=== PATIENT | female | born 1990 | race African-American/Black ===

== ENCOUNTER 2024-11-19 21:47 | Emergency (ER) | payer BC, MEDICAID ==
[~2024-11-19] VITALS: Ht 165.1 cm; Wt 63.0 kg
[2024-11-19 21:51] VITALS: TEMP 36.8; O2SAT 100
[2024-11-19] MEDS ORDERED: TETANUS, DIPHTHERIA, PERTUSSIS VAC/PF 0.5ML (>10YR OLD) IM ONE (23:15)
[2024-11-19] MEDS: TETANUS, DIPHTHERIA, PERTUSSIS VAC/PF 0.5ML (>10YR OLD) IM ONE (23:46)
[2024-11-19] MEDS: LIDOCAINE HCL/PF 1% 10 MG/ML 5ML VIAL INFIL ONE (23:46)
[2024-11-19] MEDS: BACITRACIN ZINC OINT UDPKT TOP ONE (23:46)
[2024-11-20 00:03] VITALS: BP 107/74; PULSE 74; RESP 16
[2024-11-20] MEDS: KETOROLAC 15MG/ML VIAL IM ONE (00:03)
[2024-11-20] MEDS ORDERED: NAPR-1176 MT (00:58)
== END 2024-11-20 01:41 | disposition home or self-care (01) ==
LOC: ER 21:47
DX: S01.412A Laceration without foreign body of left cheek and temporomandibular area, initial encounter (principal); Z79.1 Long term (current) use of non-steroidal anti-inflammatories (NSAID); Y04.0XXA Assault by unarmed brawl or fight, initial encounter; Y93.89 Activity, other specified; Y92.89 Other specified places as the place of occurrence of the external cause; Y99.8 Other external cause status
CPT/HCPCS: 90715; 12001; 90471; 99284; 96372; J1885; J2003; Z7610 ×4

== ENCOUNTER 2024-12-01 16:35 | Emergency (ER) | payer BC, MEDICAID ==
[~2024-12-01] VITALS: Ht 172.7 cm; Wt 58.9 kg
[~2024-12-01 16:35] MED LIST: NAPR-1176 MT
[2024-12-01 17:13] VITALS: O2SAT 100
[2024-12-01] MEDS ORDERED: CEPH500C2 MT (20:28)
[2024-12-01 21:13] VITALS: BP 124/70; PULSE 74; RESP 20; TEMP 36.9; O2SAT 100
== END 2024-12-01 21:17 | disposition home or self-care (01) ==
LOC: ER 16:35
DX: S01.81XD Laceration without foreign body of other part of head, subsequent encounter (principal); Z48.02 Encounter for removal of sutures; Z79.1 Long term (current) use of non-steroidal anti-inflammatories (NSAID); X58.XXXD Exposure to other specified factors, subsequent encounter
CPT/HCPCS: 99283; Z7610